=== PATIENT | female | born 1950 | race Caucasian/White ===

== ENCOUNTER 2017-07-04 07:16 | Emergency (ER) | payer OTHER, MEDICAID ==
[~2017-07-04] VITALS: Ht 162.6 cm; Wt 88.0 kg
[~2017-07-04 07:16] MED LIST: ACETYLSALICYLIC1 POW; DICLOFENAC SOD75 MG PO; IBUPROFEN400 MG PO; L20 PO; LOSARTAN POTAS100 M1 PO; METHOCARBAMOL PO; PRILOSEC20 MG PO; PRO60 PO; ZITHROMAX500 MG PO
[2017-07-04 07:22] VITALS: Ht 162.6 cm; Wt 88.0 kg
[2017-07-04 08:52] VITALS: BP 179/84
== END 2017-07-04 08:52 | disposition home or self-care (01) ==
LOC: ED 07:16
DX: J06.9 Acute upper respiratory infection, unspecified (principal); I10 Essential (primary) hypertension; E78.00 Pure hypercholesterolemia, unspecified; Z88.1 Allergy status to other antibiotic agents; Z86.79 Personal history of other diseases of the circulatory system
CPT/HCPCS: Q0092

== ENCOUNTER 2018-01-30 19:35 | Observation (INO) | payer OTHER, MEDICAID ==
[~2018-01-30] VITALS: Ht 162.6 cm; Wt 85.4 kg
[~2018-01-30 19:35] MED LIST changes: -PRO60 PO
[2018-01-30 21:05] LABS: BASOPHIL % 0.8 % (0-2); PLATELET COUNT 219 x10^3mcL (130-400); RED CELL DISTRIBUTION WIDTH 13.1 % (11.5-14.5)
[2018-01-30 21:28] LABS: ALBUMIN 3.6 g/dL (3.4-5.0); ALKALINE PHOSPHATASE 72 U/L (46-116); ALT/SGPT 30 U/L (14-59); AST/SGOT 27 U/L (15-37); BILIRUBIN TOTAL 1.2 mg/dL (0.20-1.00); CALCIUM 8.7 mg/dL (8.5-10.1); CARBON DIOXIDE 27.4 mmol/L (21-32); CHLORIDE SERUM 104 mmol/L (98-107); CREATININE SERUM 0.7 mg/dL (0.6-1.0); FREE T4 1.03 ng/dL (0.76-1.46); GFR1 > 60 mL/min; GLUCOSE SERUM 105 mg/dL (74-106); SODIUM SERUM 138 mmol/L (136-145); TOTAL PROTEIN, SERUM 7.7 g/dL (6.4-8.2)
[2018-01-30 21:30] LABS: POTASSIUM SERUM 2.8 mmol/L (3.5-5.1)
[2018-01-30 21:40] LABS: microscopic required? YES; urine erythrocyte TRACE (NEGATIVE)
[2018-01-30] MEDS ORDERED: HYDROCHLOROTH12.5 M2 PO (22:43)
[2018-01-30 23:47] VITALS: BP 153/69
[2018-01-30 23:55] VITALS: Ht 162.6 cm; Wt 85.4 kg
[2018-01-31 05:48] VITALS: BP 139/69
[2018-01-31 06:38] LABS: BASOPHIL % 0.6 % (0-2); PLATELET COUNT 200 x10^3mcL (130-400); RED CELL DISTRIBUTION WIDTH 13.4 % (11.5-14.5)
[2018-01-31 06:40] LABS: ALBUMIN 3.1 g/dL (3.4-5.0); ALKALINE PHOSPHATASE 60 U/L (46-116); ALT/SGPT 28 U/L (14-59); AST/SGOT 25 U/L (15-37); BILIRUBIN TOTAL 1.5 mg/dL (0.20-1.00); CALCIUM 8.3 mg/dL (8.5-10.1); CARBON DIOXIDE 27.1 mmol/L (21-32); CHLORIDE SERUM 106 mmol/L (98-107); CREATININE SERUM 0.7 mg/dL (0.6-1.0); GFR1 > 60 mL/min; GLUCOSE SERUM 97 mg/dL (74-106); MAGNESIUM 2.8 mg/dL (1.8-2.4); PHOSPHOROUS 3.9 mg/dL (2.5-4.9); POTASSIUM SERUM 3.4 mmol/L (3.5-5.1); SODIUM SERUM 140 mmol/L (136-145); TOTAL PROTEIN, SERUM 6.8 g/dL (6.4-8.2)
[2018-01-31 09:54] VITALS: BP 97/54
[2018-01-31] MEDS ORDERED: PRO60 PO (11:46)
[2018-01-31 13:16] VITALS: BP 126/65
[2018-01-31 15:27] VITALS: BP 126/65
== END 2018-01-31 16:40 | disposition home or self-care (01) | DRG 641 ==
LOC: ED 19:35 → DU 22:29
PROVIDERS: Emergency Medicine; Internal Medicine Pulmonary Disease
DX: E87.6 Hypokalemia (principal); I10 Essential (primary) hypertension; Z68.32 Body mass index [BMI] 32.0-32.9, adult
CPT/HCPCS: 84439; G0378; J1885; J2765; J3475; J3480; J7050

== ENCOUNTER 2019-03-06 09:36 | Emergency (ER) | payer OTHER ==
[~2019-03-06] VITALS: Ht 160 cm; Wt 87.1 kg
[~2019-03-06 09:36] MED LIST changes: +HYDROCHLOROTH12.5 M2 PO; +PRO60 PO
[2019-03-06 09:38] VITALS: Ht 160 cm; Wt 87.1 kg
[2019-03-06 10:35] LABS: BASOPHIL % 0.4 % (0-2); PLATELET COUNT 238 x10^3mcL (130-400)
[2019-03-06 10:48] LABS: CALCIUM 8.6 mg/dL (8.5-10.1); CARBON DIOXIDE 28.6 mmol/L (21-32); CHLORIDE SERUM 106 mmol/L (98-107); CREATININE SERUM 0.8 mg/dL (0.6-1.0); GFR1 > 60 mL/min; GLUCOSE SERUM 110 mg/dL (74-106); POTASSIUM SERUM 3.2 mmol/L (3.5-5.1); SODIUM SERUM 144 mmol/L (136-145)
[2019-03-06 10:53] LABS: ALBUMIN 3.8 g/dL (3.4-5.0); ALKALINE PHOSPHATASE 87 U/L (46-116); ALT/SGPT 37 U/L (14-59); AST/SGOT 26 U/L (15-37); BILIRUBIN TOTAL 1.1 mg/dL (0.20-1.00); TOTAL PROTEIN, SERUM 8.1 g/dL (6.4-8.2)
[2019-03-06 16:34] VITALS: BP 146/67
== END 2019-03-06 16:32 | disposition short-term general hospital (02) ==
LOC: ED 09:36
PROVIDERS: Emergency Medicine
DX: R07.89 Other chest pain (principal); R55 Syncope and collapse; R42 Dizziness and giddiness; I10 Essential (primary) hypertension; E78.00 Pure hypercholesterolemia, unspecified; Z90.49 Acquired absence of other specified parts of digestive tract; Z88.1 Allergy status to other antibiotic agents
CPT/HCPCS: 82962; 83880; J0360; J7030

== ENCOUNTER 2019-06-21 21:47 | Emergency (ER) | payer BC, OTHER ==
[~2019-06-21] VITALS: Ht 149.9 cm; Wt 99.8 kg
[2019-06-21 21:54] VITALS: Ht 149.9 cm; Wt 99.8 kg
[2019-06-21 22:40] LABS: BASOPHIL % 0.6 % (0-2); PLATELET COUNT 233 x10^3mcL (130-400); RED CELL DISTRIBUTION WIDTH 12.7 % (11.5-14.5)
[2019-06-21 22:57] LABS: ALBUMIN 3.8 g/dL (3.4-5.0); ALKALINE PHOSPHATASE 101 U/L (46-116); ALT/SGPT 51 U/L (14-59); AST/SGOT 39 U/L (15-37); BILIRUBIN TOTAL 0.7 mg/dL (0.20-1.00); CALCIUM 8.6 mg/dL (8.5-10.1); CARBON DIOXIDE 30.9 mmol/L (21-32); CHLORIDE SERUM 102 mmol/L (98-107); CREATININE SERUM 0.9 mg/dL (0.6-1.0); GFR1 > 60 mL/min; GLUCOSE SERUM 141 mg/dL (74-106); SODIUM SERUM 142 mmol/L (136-145)
[2019-06-21 22:59] LABS: POTASSIUM SERUM 2.9 mmol/L (3.5-5.1)
[2019-06-22 05:38] VITALS: BP 147/85
== END 2019-06-22 05:38 | disposition short-term general hospital (02) ==
LOC: ED 21:47
PROVIDERS: Emergency Medicine
DX: G82.20 Paraplegia, unspecified (principal)
CPT/HCPCS: 83880; J3480; Q0092; Q9967